=== PATIENT | male | born 2000 | race Caucasian/White ===

== ENCOUNTER 2019-07-20 14:55 | Emergency (ER) | payer BC ==
[2019-07-20] MEDS ORDERED: Lidocaine 1% MPF ** 5 ML VIAL IM ONE (15:58)
[2019-07-20] MEDS ORDERED: cefTRIAXone VIAL(*) 250 MG VIAL IM ONE (15:58)
--- NOTE | 2019-07-20 16:03 | UC ---
Complaint Male HPI - HPI Summary HPI Summary: 19 yo male with onset of dysuria yesterday now with urethral d/c no testicular pain he has a new partner - History of Current Complaint Chief Complaint: UCSTDScreening Stated Complaint: PERSONAL Time Seen by Provider: 07/20/19 15:42 Hx Obtained From: Patient Onset/Duration: Sudden Onset, Lasting Hours Timing: Constant Severity Initially: Mild Severity Currently: Moderate Pain Intensity: 6 Pain Scale Used: 0-10 Numeric Location: Penis Character: Burning Aggravating Factor(s): Voiding Alleviating Factor(s): Nothing Associated Signs And Symptoms: Positive: Penile Discharge - Allergies/Home Medications Allergies/Adverse Reactions: Allergies Allergy/AdvReac Type Severity Reaction Status Date / Time azithromycin Allergy Hives Verified 07/20/19 15:45 PMH/Surg Hx/FS Hx/Imm Hx Previously Healthy: Yes - Surgical History Surgical History: Yes Surgery Procedure, Year, and Place: wisdom teeth - Family History Known Family History: Positive: Hypertension, Non-Contributory Negative: Cardiac Disease, Diabetes - Social History Alcohol Use: Rare Substance Use Type: None Smoking Status (MU): Current Some Day Smoker Type: Smokeless Tobacco Review of Systems All Other Systems Reviewed And Are Negative: Yes Constitutional: Positive: Negative Skin: Positive: Negative Eyes: Positive: Negative ENT: Positive: Negative Respiratory: Positive: Negative Cardiovascular: Positive: Negative Gastrointestinal: Positive: Negative Genitourinary: Positive: Dysuria, Vaginal/Penile Itching, Vaginal/Penile Discharge Motor: Positive: Negative Neurovascular: Positive: Negative Musculoskeletal: Positive: Negative Neurological: Positive: Negative Psychological: Positive: Negative Physical Exam Triage Information Reviewed: Yes Appearance: Well-Appearing, No Pain Distress, Well-Nourished Vital Signs: Initial Vital Signs Temp 98.1 F 07/20/19 15:38 Pulse 92 07/20/19 15:38 Resp 18 07/20/19 15:38 BP 138/82 07/20/19 15:38 Pulse Ox 100 07/20/19 15:38 Vital Signs Reviewed: Yes Eyes: Positive: Conjunctiva Clear ENT: Positive: Hearing grossly normal. Negative: Nasal congestion, Nasal drainage, Tonsillar swelling, Tonsillar exudate, Muffled voice, Hoarse voice Dental Exam: Normal Neck: Positive: Supple Respiratory: Positive: Lungs clear, Normal breath sounds, No respiratory distress, No accessory muscle use Cardiovascular: Positive: RRR, No Murmur Abdomen Description: Positive: Nontender, No Organomegaly Male Genital Exam: Positive: Urethral Discharge. Negative: Epididymal Tenderness Musculoskeletal: Positive: ROM Intact, No Edema Neurological: Positive: Alert, Muscle Tone Normal Psychological Exam: Normal Skin Exam: Normal Complaint Male Course/Dx - Differential Dx/Diagnosis Provider Diagnosis: Urethritis, Elevated BP without diagnosis of hypertension Discharge ED - Sign-Out/Discharge Documenting (check all that apply): Patient Departure All imaging exams completed and their final reports reviewed: No Studies - Discharge Plan Condition: Stable Disposition: HOME Prescriptions: DOXYcycline CAP(*) [DOXYcycline 100MG CAP(*)] 100 mg PO BID #14 cap Patient Education Materials: Nonspecific Urethritis in Men (ED) Referrals: No Primary Care Phys,NOPCP [Primary Care Provider] - [facility] [place] [facility] [Outside] - If Needed Additional Instructions: Tests for GC and Chlamydia are pending take doxy with food recheck for worsening symptoms or if not completely better in a week - Billing Disposition and Condition Condition: STABLE Disposition: Home
[2019-07-22 12:39] LABS: Chlamydia trachomatis NAA Negative (Negative)
[2019-07-22 15:40] LABS: Neisseria gonorrhoeae (GC) NAA Positive (Negative)
== END 2019-07-20 16:24 | disposition home or self-care (01) ==
LOC: UCCORT 14:55
DX: N34.2 Other urethritis (principal); R03.0 Elevated blood-pressure reading, without diagnosis of hypertension; Z88.1 Allergy status to other antibiotic agents; Z72.0 Tobacco use
CPT/HCPCS: 87491; 87591; 96372; 99202; G0463; J0696